=== PATIENT | female | born 1995 | race Caucasian/White ===

== ENCOUNTER 2016-08-15 15:11 | Inpatient (IN) | payer MEDICAID ==
[2016-08-15 16:00] VITALS: BMI 18.8
[2016-08-15] MEDS ORDERED: LR 500 ML IV PRN (16:27)
[2016-08-15] MEDS ORDERED: AMPICILLIN 2 GM in NS 100 ML IV ONE (16:27)
[2016-08-15] MEDS ORDERED: FLEET 4.5 OZ ENEMA PR ONE (16:27)
[2016-08-15] MEDS ORDERED: LR 1,000 ML IV SCH (17:00)
[2016-08-15 17:11] LABS: AUTOMATED BASOPHIL 0.6 % (0-2); AUTOMATED LYMPH 23.3 % (17-44); AUTOMATED MONOCYTE 5.9 % (3-10); AUTOMATED NEUTROPHIL 69.2 % (45-76); MPV 10.1 fL (7.4-10.4)
--- NOTE | 2016-08-15 17:52 | HISTPHYS ---
- HISTORY OF PRESENT ILLNESS Age: 21 Estimated Due Date: 08/31/16 Gestational Age: 37 : 1 Para: 0 Patient Presents to:: Labor & Delivery Presents for:: Contractions, Leaking Fluid (SROM at 1400) Current : GBS + - REVIEW OF SYSTEMS Reports/Denies: Reports: Contractions (Regular and strong), Movement ( Normal). Denies: Vaginal Bleeding, Fever Pain: Reports: Abdominal, Back - ALLERGIES Allergies Allergy/AdvReac Type Severity Reaction Status Date / Time No Known Allergies Allergy Verified 08/15/16 16:11 - PAST MEDICAL HISTORY Reports: GI Disorders (IBS) - PAST SURGICAL HISTORY Reports: None - FAMILY HISTORY Family History: Noncontributory - SOCIAL HISTORY Travel Outside of [place] in the Last 3 Months?: No Smoking Status: Never smoker Social History: Denies: Alcohol Use Marital Status: Single (Never ) - GENITOURINARY HISTORY Gynecologic History: Reports: None HX : 1 Para: 0 - PHYSICAL EXAM Vital Signs:: Temperature: 98.3 F (08/15/16 16:15) HR: 85 (08/15/16 16:15) RR: 18 (08/15/16 16:15) BP: 120/74 (08/15/16 16:15) Pulse Ox: () GENERAL: Alert, Oriented, No Acute Distress ABDOMEN: Gravid, Non-Distended, Non-Tender, Soft Fundal Height (cm): 37 GENITOURINARY: Normal. negative: Lesions, Mass, Rash, Swelling, Discharge MUSCULOSKELETAL: Normal. negative: Atrophy EXTERMITIES: Moves All Extremeties. negative: Pain/Tenderness Dilation (cm): 4.5 Effacement (%): 80 Station: -3 Heart Rate: 130 Reactive, Moderate Variability. negative: Decelerations Contractions: Regular Membranes: Pooling Amniotic Fluid: Clear - ASSESSMENT (ACTIVE PROBLEMS) (1) SROM (spontaneous rupture of membranes) Acute [id number] - Present on Admission: Yes (2) Active labor at term Acute [id number] - Present on Admission: Yes (3) 37 weeks gestation of Acute Z3A.37 - 37 WEEKS GESTATION OF Present on Admission: Yes - PLAN Admit, GBS Prophylaxis, Pain Management
[2016-08-15] MEDS: BUTORPHANOL 1 MG/ML VIAL IV PRN ×4 (19:02→23:32)
[2016-08-15] MEDS: AMPICILLIN 1 GM in NS 100 ML IV SCH (21:16)
[2016-08-16] MEDS ORDERED: LIDOCAINE 1% 30 ML VIAL (PRESERVATIVE FREE) ONE (00:48)
[2016-08-16] MEDS ORDERED: OXYTOCIN 1,000 ML IV ONE ×2 (00:48→01:59)
[2016-08-16] MEDS: AMPICILLIN 1 GM in NS 100 ML IV SCH (01:28)
--- NOTE | 2016-08-16 01:48 | OBDELNOTE ---
Delivery Note - Problem/Diagnosis (1) SROM (spontaneous rupture of membranes) Status: Acute (2) Active labor at term Status: Acute (3) 37 weeks gestation of Status: Acute (4) Vaginal delivery Status: Acute - Admitting Diagnosis Reason for Visit: Leaking Fluid Admission Date: 08/15/16 Admission time: 15:20 Gestational Age: 37 - Procedures Procedure(s): None Labor Anesthesia/Analgesia: IV Medication Date: 08/16/16 Time: 01:30 Spontaneous Vaginal Delivery Presentation: Vertex Episiotomy: Left Mediolateral Laceration: None Repair Agent: 3-0 Chromic EBL: 300 Fluid: Clear Placenta: Spontaneous Description: Normal - Procedures Procedures: None - Data Order: Godinez Infant Sex: Male Weight: 3.345 kg (1min): 9 (5min): 9 Feeding Plans for : Breast Plans Circumcision: Yes [place] Complications: No Complications to:: LDRP/Mother's Room - /Operative Complications /Op Complications: None Discharge Planning - REASON FOR ADMISSION Patient Presents to:: Labor & Delivery Reason for Visit: Contractions, Leaking Fluid (SROM at 1400) - DISCHARGE INSTRUCTIONS Prescriptions: Hydrocodone Bit/Acetaminophen [Lortab 5/325] 1 - 2 tab PO Q4H PRN #30 tab PRN Reason: Pain Ibuprofen Tablet [Motrin] 800 mg PO Q6-8H PRN #30 tab PRN Reason: Pain
--- NOTE | 2016-08-16 01:49 | PCM.DCS92 ---
<Kennedy Arango - Last Filed: 08/16/16 01:48> - Primary/Secondary Discharge Diagnoses (1) SROM (spontaneous rupture of membranes) Acute [id number] - Present on Admission: Yes (2) Active labor at term Acute [id number] - Present on Admission: Yes (3) 37 weeks gestation of Acute Z3A.37 - 37 WEEKS GESTATION OF Present on Admission: Yes (4) Vaginal delivery Acute O80 - ENCOUNTER FOR FULL-TERM UNCOMPLICATED DELIVERY Present on Admission: No - HOSPITAL COURSE /Op Complications: None - DISCHARGE INSTRUCTIONS Discharge Disposition: Home Discharge Condition: Good Cognitive Discharge Status: Unimpaired Fuctional Discharge Status: Independent Patient Leaving with Prescriptions?: Yes Home Medications/ New Prescriptions: New Hydrocodone Bit/Acetaminophen [Lortab 5/325] 1 - 2 tab PO Q4H PRN #30 tab PRN Reason: Pain Ibuprofen Tablet [Motrin] 800 mg PO Q6-8H PRN #30 tab PRN Reason: Pain No Action Vits W-Ca,Fe,FA(<1Mg) [] 1 each PO DAILY Referrals: Kennedy Arango MD [Staff Physician] - 09/27/16 10:30 am - Diet Diet at Discharge: Regular - Activity Activity: No Heavy Lifting, Pelvic Rest, No Driving No Driving for: While using pain medications - Instructions Call Physician for: Severe Abdominal Cramps, Foul Smelling Discharge, Pain/ Redness in Calf/Leg, Soaking Pad in 1 hr, Increased Pain at Wound, Temperature Above 100.4, Drainiage from Wound - Incision Incision, Lacerations, or Tears: Yes - DC Summary Notes Discharge Medications: *See "Discharge Medication List" for a complete list of Home Medications and Discharge Medications.* Obstetric Hospital Course - Admitting Diagnosis Reason for Visit: Leaking Fluid Admission Date: 08/15/16 Admission time: 15:20 Gestational Age: 37 - Procedures Procedure(s): None Labor Anesthesia/Analgesia: IV Medication Date: 08/16/16 Time: 01:30 Spontaneous Vaginal Delivery Presentation: Vertex Episiotomy: Left Mediolateral Laceration: None Repair Agent: 3-0 Chromic EBL: 300 Fluid: Clear Placenta: Spontaneous Description: Normal - Procedures Procedures: None - Infant Data Order: Godinez Sex: Male Weight: 3.345 kg (1min): 9 (5min): 9 Feeding Plans for : Breast Plans Circumcision: Yes Morris Complications: No Complications to:: LDRP/Mother's Room - /Operative Complications /Op Complications: None <Srinivasan Waldron - Last Filed: 08/18/16 10:08> - Primary/Secondary Discharge Diagnoses (1) care following vaginal delivery Acute Z39.2 - ENCOUNTER FOR ROUTINE FOLLOW-UP - DC Summary Notes Discharge Medications: *See "Discharge Medication List" for a complete list of Home Medications and Discharge Medications.*
[2016-08-16] MEDS ORDERED: LANOLIN OINTMENT 0.25 OZ TUBE TOP PRN (01:59)
[2016-08-16] MEDS ORDERED: DIBUCAINE OINTMENT 1 OZ TUBE TOP PRN (01:59)
[2016-08-16] MEDS ORDERED: HYDROCORTISONE 25 MG SUPP PR PRN (01:59)
[2016-08-16] MEDS ORDERED: BISACODYL 10 MG SUPP PR PRN (01:59)
[2016-08-16] MEDS ORDERED: ACETAMINOPHEN 325 MG/TAB TABLET PO PRN (01:59)
[2016-08-16] MEDS ORDERED: SODIUM CHLORIDE 0.9% 3 ML FLUSH FLUSH PRN (01:59)
[2016-08-16] MEDS ORDERED: Pharmacy Order Set Alert SCH (02:00)
[2016-08-16] MEDS: IBUPROFEN 800 MG TAB PO SCH ×4 (02:20→19:22)
[2016-08-16] MEDS: OXYCODONE HCL 5 MG TABLET PO PRN ×2 (04:11→19:22)
[2016-08-16] MEDS ORDERED: SODIUM CHLORIDE 0.9% 3 ML FLUSH FLUSH SCH (06:00)
--- NOTE | 2016-08-16 08:27 | OBGYNPROG ---
- Subjective Post Day: 0 Reports: Ambulating, Out of Bed, Tolerating Regular Diet, Voiding Freely, Moderate Lochia, Well, Fatigue. Denies: Dizziness, Nausea, Vomitting, Chest Pain, Shortness of Breath Pain: Reports: Well Managed, Abdominal - Objective Vital Signs: Last Vital Signs Temp 98.5 F 08/16/16 05:57 Pulse 94 08/16/16 05:57 Resp 16 08/16/16 05:57 BP 127/71 08/16/16 05:57 Pulse Ox General: Alert, Oriented, No Acute Distress ABDOMEN: Non-Distended, Non-Tender, Soft Fundus: U - 1, Firm Bladder: Voiding & Emptying OBGYN Progress Note - ASSESSMENT (1) care following vaginal delivery Status: Acute Code(s): Z39.2 - ENCOUNTER FOR ROUTINE FOLLOW-UP - PLAN Routine Care, Supportive Care
[2016-08-16] MEDS ORDERED: LR 1,000 ML IV SCH (08:44)
[2016-08-16] MEDS: Docusate Sodium 100 MG CAP PO SCH (19:22)
[2016-08-17] MEDS: IBUPROFEN 800 MG TAB PO SCH ×3 (02:54→19:51)
[2016-08-17] MEDS: OXYCODONE HCL 5 MG TABLET PO PRN (02:55)
--- NOTE | 2016-08-17 07:22 | OBGYNPROG ---
- Subjective Post Day: 1 Reports: Ambulating, Out of Bed, Tolerating Regular Diet, Voiding Freely, Moderate Lochia. Denies: Complaints, Dizziness, Headache, Nausea, Vomitting, Palpitations, Chest Pain, Shortness of Breath Pain: Reports: Well Managed - Objective Vital Signs: Last Vital Signs Temp 98 F 08/17/16 06:05 Pulse 73 08/17/16 06:05 Resp 16 08/17/16 06:05 BP 98/51 L 08/17/16 06:05 Pulse Ox H&H Results 08/17/16 08/15/16 06:30 16:58 Hgb 8.4 L D 10.3 L Hct 25.4 L 30.7 L General: Alert, Oriented, No Acute Distress Cardiovascular/Chest: Normal Respiratory: Normal - CTA ABDOMEN: Non-Tender, Soft Fundus: Firm. Denies: Tender EXTERMITIES: Moves All Extremeties. Denies: Edema RONI'S SIGN: Denies: Bilateral OBGYN Progress Note - ASSESSMENT (1) care following vaginal delivery Status: Acute Code(s): Z39.2 - ENCOUNTER FOR ROUTINE FOLLOW-UP - PLAN Routine Care, Discharge (instructions given), Supportive Care
[2016-08-17] MEDS: Docusate Sodium 100 MG CAP PO SCH (19:51)
[2016-08-17] MEDS ORDERED: HYDROCORTISONE 1% OINTMENT 30 GM TUBE TOP SCH (21:00)
[2016-08-18] MEDS: IBUPROFEN 800 MG TAB PO SCH ×3 (02:07→18:19)
--- NOTE | 2016-08-18 10:07 | OBGYNPROG ---
- Subjective Post Day: 1 Reports: Ambulating, Out of Bed, Tolerating Regular Diet, Moderate Lochia. Denies: Complaints Pain: Reports: Well Managed - Objective Vital Signs: Vital Signs - 8 hr 08/18/16 05:36 Temperature 97.8 F Pulse Rate 67 Respiratory 16 Rate Blood Pressure 103/55 L H&H Results 08/17/16 08/15/16 06:30 16:58 Hgb 8.4 L D 10.3 L Hct 25.4 L 30.7 L General: Alert, Oriented, No Acute Distress ABDOMEN: Non-Distended, Non-Tender, Soft Fundus: U - 1, Firm MUSCULOSKELETAL: Normal EXTERMITIES: Moves All Extremeties RONI'S SIGN: Denies: Bilateral OBGYN Progress Note - ASSESSMENT (1) care following vaginal delivery Status: Acute Code(s): Z39.2 - ENCOUNTER FOR ROUTINE FOLLOW-UP - PLAN Discharge (baby with jaundice, will discharge but allow rooming in)
[2016-08-18 17:13] VITALS: BP 122/80; PULSE 89; TEMP 98.2
== END 2016-08-18 18:30 | disposition home or self-care (01) | DRG 775 ==
LOC: MASU 15:11
PROVIDERS: ADMIT Obstetrics & Gynecology; ATTEND Obstetrics & Gynecology
PROC: 0W8NXZZ Division of Female Perineum, External Approach (ICD-10-PCS; principal; 2016-08-16)
PROC: 10E0XZZ Delivery of Products of Conception, External Approach (ICD-10-PCS; 2016-08-16)
DX: O99.824 Streptococcus B carrier state complicating childbirth (principal); Z37.0 Single live birth; Z3A.37 37 weeks gestation of pregnancy
CPT/HCPCS: 59400; 81002; 83986; 85014; 85018; 85025; 86592; 86900; 86901; 96361; 96365; 96366; 96375; 96376; J0290; J0595; J2001; J2590; J3490; J7030